=== PATIENT | female | born 1985 ===

== ENCOUNTER 2024-09-04 06:16 | Day surgery (SDC) | payer BC, SELFPAY ==
[2024-09-04 10:12] LABS: HCG, Urine Qualitative Screen Negative
== END 2024-09-04 12:25 | disposition home or self-care (01) ==
LOC: GI 06:16
PROVIDERS: ATTENDING PHYSICIAN Student in an Organized Health Care Education/Training Program
DX: R10.84 Generalized abdominal pain (principal); R19.4 Change in bowel habit; K62.89 Other specified diseases of anus and rectum; K44.9 Diaphragmatic hernia without obstruction or gangrene; K25.9 Gastric ulcer, unspecified as acute or chronic, without hemorrhage or perforation; K31.89 Other diseases of stomach and duodenum; K29.50 Unspecified chronic gastritis without bleeding
CPT/HCPCS: 45378; 43239; 88305; 81025; 88342